=== PATIENT | female | born 1975 | race Two or more races ===

== ENCOUNTER 2017-03-17 10:11 | Outpatient (CLI) | payer OTHER | END 2017-03-17 10:24 | disposition home or self-care (01) | LOC: MAMO-SONO 10:11 | DX: Z12.31 Encounter for screening mammogram for malignant neoplasm of breast (principal); N63.10 Unspecified lump in the right breast, unspecified quadrant; N63.20 Unspecified lump in the left breast, unspecified quadrant; N64.4 Mastodynia; N60.11 Diffuse cystic mastopathy of right breast ==

== ENCOUNTER 2017-03-31 11:44 | Outpatient (CLI) | payer OTHER | END 2017-03-31 16:12 | disposition home or self-care (01) | LOC: SONOGRAMA 11:44 | DX: E04.8 Other specified nontoxic goiter (principal) ==

== ENCOUNTER → 2017-04-13 | Outpatient (CLI) | payer OTHER | END | disposition home or self-care (01) | LOC: NUCLEAR 07:30 | DX: E05.00 Thyrotoxicosis with diffuse goiter without thyrotoxic crisis or storm (principal) | CPT/HCPCS: 78012; A9531 ==

== ENCOUNTER 2017-04-14 09:00 | Outpatient (CLI) | payer OTHER | END 2017-04-14 09:01 | disposition home or self-care (01) | LOC: NUCLEAR 09:00 | DX: E05.00 Thyrotoxicosis with diffuse goiter without thyrotoxic crisis or storm (principal) | CPT/HCPCS: 78013; A9512 ==

== ENCOUNTER 2017-05-11 08:40 | Outpatient (CLI) | payer OTHER | END 2017-05-11 10:12 | disposition home or self-care (01) | LOC: SONOGRAMA 08:40 | DX: E04.8 Other specified nontoxic goiter (principal) ==

== ENCOUNTER 2018-04-29 10:05 | Outpatient (CLI) | payer OTHER | END 2018-04-29 10:15 | disposition home or self-care (01) | LOC: MAMO-SONO 10:05 | DX: N64.4 Mastodynia (principal); N60.11 Diffuse cystic mastopathy of right breast; N63.10 Unspecified lump in the right breast, unspecified quadrant; N63.20 Unspecified lump in the left breast, unspecified quadrant; Z12.31 Encounter for screening mammogram for malignant neoplasm of breast ==

== ENCOUNTER 2018-09-30 10:03 | Outpatient (CLI) | payer OTHER | END 2018-09-30 10:05 | disposition home or self-care (01) | LOC: SONOGRAMA 10:03 | DX: E04.8 Other specified nontoxic goiter (principal) ==

== ENCOUNTER 2020-07-03 13:43 | Outpatient (CLI) | payer OTHER | END 2020-07-03 14:02 | disposition home or self-care (01) | LOC: MAMO-SONO 13:43 | PROVIDERS: ATTEND Obstetrics & Gynecology Maternal & Fetal Medicine | DX: Z12.31 Encounter for screening mammogram for malignant neoplasm of breast (principal); N63.0 Unspecified lump in unspecified breast; N64.4 Mastodynia; N60.11 Diffuse cystic mastopathy of right breast ==

== ENCOUNTER 2020-11-16 09:19 | Outpatient (CLI) | payer OTHER | END 2020-11-16 09:30 | disposition home or self-care (01) | LOC: SONOGRAMA 09:19 | PROVIDERS: ATTEND Internal Medicine Endocrinology, Diabetes & Metabolism | DX: E04.2 Nontoxic multinodular goiter (principal) ==

== ENCOUNTER → 2020-12-06 | Outpatient (CLI) | payer OTHER | END | disposition home or self-care (01) | LOC: SONOGRAMA 09:40 | PROVIDERS: ATTEND Pathology Anatomic Pathology & Clinical Pathology | DX: R59.0 Localized enlarged lymph nodes (principal) ==

== ENCOUNTER → 2021-01-14 | Emergency (ER) | payer OTHER ==
[~2021-01-14] VITALS: Ht 162.6 cm; Wt 67.1 kg
[~2021-01-14] MED LIST: LEVO-T25 MCG PO
== END | disposition home or self-care (01) ==
LOC: ER 12:15
DX: S00.81XA Abrasion of other part of head, initial encounter (principal); Y92.019 Unspecified place in single-family (private) house as the place of occurrence of the external cause; W22.8XXA Striking against or struck by other objects, initial encounter; E03.9 Hypothyroidism, unspecified

== ENCOUNTER 2021-08-15 09:02 | Outpatient (CLI) | payer OTHER | END 2021-08-15 09:04 | disposition home or self-care (01) | LOC: MAMO-SONO 09:02 | PROVIDERS: ATTEND Internal Medicine Endocrinology, Diabetes & Metabolism | DX: Z12.39 Encounter for other screening for malignant neoplasm of breast (principal); E04.2 Nontoxic multinodular goiter; R59.9 Enlarged lymph nodes, unspecified ==

== ENCOUNTER 2022-02-17 13:41 | Outpatient (CLI) | payer OTHER | END 2022-02-17 13:45 | disposition home or self-care (01) | LOC: NUCLEAR 13:41 | PROVIDERS: ATTEND Orthopaedic Surgery | DX: M81.0 Age-related osteoporosis without current pathological fracture (principal) ==

== ENCOUNTER 2022-12-22 08:48 | Outpatient (CLI) | payer OTHER | END 2022-12-22 09:05 | disposition home or self-care (01) | LOC: MAMO-SONO 08:48 | PROVIDERS: ATTEND Obstetrics & Gynecology Maternal & Fetal Medicine | DX: Z12.31 Encounter for screening mammogram for malignant neoplasm of breast (principal); N64.4 Mastodynia; N60.11 Diffuse cystic mastopathy of right breast; N63.0 Unspecified lump in unspecified breast ==

== ENCOUNTER 2023-04-24 09:30 | Outpatient (CLI) | payer OTHER | END 2023-04-24 09:46 | disposition home or self-care (01) | LOC: RAD 09:30 | PROVIDERS: ATTEND Internal Medicine Endocrinology, Diabetes & Metabolism | DX: R05.9 Cough, unspecified (principal); J44.9 Chronic obstructive pulmonary disease, unspecified; E04.2 Nontoxic multinodular goiter; R59.0 Localized enlarged lymph nodes; K76.0 Fatty (change of) liver, not elsewhere classified; R94.5 Abnormal results of liver function studies ==

== ENCOUNTER 2024-01-26 13:34 | Outpatient (CLI) | payer OTHER | END 2024-01-26 13:38 | disposition home or self-care (01) | LOC: MAMO-SONO 13:34 | PROVIDERS: ATTEND Obstetrics & Gynecology Maternal & Fetal Medicine | DX: N63 Unspecified lump in breast (principal); Z12.31 Encounter for screening mammogram for malignant neoplasm of breast; N64.4 Mastodynia; N60.11 Diffuse cystic mastopathy of right breast ==

== ENCOUNTER 2024-08-06 17:29 | Emergency (ER) | payer OTHER ==
[~2024-08-06] VITALS: Ht 162.6 cm; Wt 70.3 kg
[2024-08-06] MEDS ORDERED: CEFTRIAXONE SODIUM 1,000 MG VIAL IM ONE (20:30)
[2024-08-06] MEDS ORDERED: CEPHALEXIN500 M1 PO (21:09)
== END 2024-08-06 21:19 | disposition home or self-care (01) ==
LOC: ER 18:08
DX: S61.411A Laceration without foreign body of right hand, initial encounter (principal); W45.8XXA Other foreign body or object entering through skin, initial encounter; Y93.89 Activity, other specified; Y92.89 Other specified places as the place of occurrence of the external cause; Y99.9 Unspecified external cause status; E03.9 Hypothyroidism, unspecified

== ENCOUNTER 2024-08-16 16:34 | Emergency (ER) | payer OTHER ==
[~2024-08-16] VITALS: Ht 162.6 cm; Wt 70.3 kg
[~2024-08-16 16:34] MED LIST changes: +CEPHALEXIN500 M1 PO
== END 2024-08-16 18:21 | disposition home or self-care (01) ==
LOC: ER 16:34
DX: Z48.02 Encounter for removal of sutures (principal)